=== PATIENT | male | born 1950 | race Caucasian/White ===

== ENCOUNTER 2017-07-22 10:54 | Observation (INO) | payer OTHER ==
--- NOTE | 2017-07-22 11:59 | EDPHY ---
H & P Time Seen by Provider: 07/22/17 11:59 HPI/ROS: Chief complaint. Left flank pain HPI. 59 ammonia old male presents with left flank and back pain for 4 days. No injury. Hurts to move. No urinary symptoms. No fever. He has had constipation for 4 days. Slightly distended abdomen with some periumbilical discomfort. No previous abdominal surgery. Has had history of constipation. Denies chest discomfort or trouble breathing. ROS Constitutional. no fever/chills, no weakness Eyes. no problems with vision ENT. no sore throat, no nasal drainage Cardiovascular. no chest pain Respiratory. no shortness of breath, no cough Abdominal. Left flank pain . no problems urinating MS. no calf pain/swelling, no neck/back pain, no joint pain Skin. no rash Lymph. no swollen glands Neuro. no headache, no dizziness, no difficulty walking or with speech Past Medical/Surgical History: Past medical history significant for hypertension Social History: , nonsmoker, no alcohol Smoking Status: Never smoked Physical Exam: General Appearance: Alert well-developed male moderate distress vital signs are stable Eyes: Pupils equal and round no pallor or injection. ENT, Mouth: Mucous membranes are moist. Respiratory: There are no retractions, lungs are clear to auscultation. Cardiovascular: Regular rate and rhythm. Gastrointestinal: Abdomen is soft and nontender, no masses, bowel sounds normal. Patient shows me pain to the left flank area but is not worse with palpation Neurological: Awake and alert, sensory and motor exams grossly normal. Skin: Warm and dry, no rashes. Musculoskeletal: Neck is supple nontender. Extremities symmetrical, full range of motion. Psychiatric: Patient is oriented X 3, there is no agitation. Constitutional: Initial Vital Signs Temperature (C) 36.5 C 07/22/17 11:09 Heart Rate 58 L 07/22/17 11:09 Respiratory Rate 16 07/22/17 11:09 Blood Pressure 170/95 H 07/22/17 11:09 O2 Sat (%) 98 07/22/17 11:09 O2 Delivery Mode Room Air Allergies/Adverse Reactions: No Known Allergies Allergy (Unverified 07/22/17 11:07) Home Medications: Medication Instructions Recorded C/E/Zn/Cu/OM3/DHA/EPA/LUT/ZEAX 1 each PO DAILY 07/22/17 [Preservision Areds 2 Softgel] Dextromethorphan HBr/Quinidine 1 each PO DAILY 07/22/17 [Nuedexta 20-10 mg Capsule] Herbals/Supplements -Info Only 1 ea PO DAILY 07/22/17 Tamsulosin HCl [Flomax 0.4 MG (*)] 0.4 mg PO HS 07/22/17 Valsartan/Hydrochlorothiazide 1 each PO DAILY 07/22/17 [Valsartan-Hctz 160-12.5 mg Tab] buPROPion SR [Wellbutrin 150mg SR 150 mg PO BID 07/22/17 (*)] Medical Decision Making - Diagnostics Imaging Results: Imaging Impressions Abdomen CT 07/22/17 12:11 Impression: 1. 9-mm left ureterovesical junction stone with moderate obstructive uropathy with perinephric and periureteric stranding, suggesting forniceal rupture. Urothelial enhancement could be related to inflammation or infection. 2. Constipation. 3. Diverticulosis. 4. Mild esophageal thickening, possibly related to inflammation or underdistention. 5. Additional findings as above. Findings discussed with Dr. Ziggy Rosenbaum on July 22, [address] abdomen and pelvis shows 9 mm stone at the left UVJ. Lots of proximal stranding. Procedures: IV normal saline. Morphine for pain. Zofran for nausea ED Course/Re-evaluation: Re-evaluation 1:30 p.m.--patient continues to have left-sided pain Patient and I discussed treatment plan including recommendation for admission. He expresses understanding and agreement I consulted and discussed case Dr. matos, hospitalist, who agrees to the admission I consulted and discussed the case with Dr. Baird, urologist, who will see the patient in consultation Differential Diagnosis: I considered musculoskeletal etiology, diverticulitis, abdominal aortic aneurysm , kidney stone. Patient appears to have compromised renal function though since he is visiting we do not have baseline renal function - Data Points Laboratory Results: Laboratory Results 07/22/17 12:13 07/22/17 12:13 07/22/17 07/22/17 07/22/17 12:13 12:13 11:55 WBC 9.31 10^3/uL 10^3/uL (3.80-9.50) RBC 4.54 10^6/uL 10^6/uL (4.40-6.38) Hgb 14.3 g/dL g/dL (13.7-17.5) Hct 41.2 % % (40.0-51.0) MCV 90.7 fL fL (81.5-99.8) MCH 31.5 pg pg (27.9-34.1) MCHC 34.7 g/dL g/dL (32.4-36.7) RDW 12.7 % % (11.5-15.2) Plt Count 286 10^3/uL 10^3/uL (150-400) MPV 9.7 fL fL (8.7-11.7) Neut % (Auto) 78.0 % H % (39.3-74.2) Lymph % (Auto) 11.3 % L % (15.0-45.0) [place] % (Auto) 8.1 % % (4.5-13.0) Eos % (Auto) 1.7 % % (0.6-7.6) Baso % (Auto) 0.5 % % (0.3-1.7) Nucleat RBC Rel Count 0.0 % % (0.0-0.2) Absolute Neuts (auto) 7.26 10^3/uL H 10^3/uL (1.70-6.50) Absolute Lymphs (auto) 1.05 10^3/uL 10^3/uL (1.00-3.00) Absolute Monos (auto) 0.75 10^3/uL 10^3/uL (0.30-0.80) Absolute Eos (auto) 0.16 10^3/uL 10^3/uL (0.03-0.40) Absolute Basos (auto) 0.05 10^3/uL 10^3/uL (0.02-0.10) Absolute Nucleated RBC 0.00 10^3/uL 10^3/uL (0-0.01) Immature Gran % 0.4 % % (0.0-1.1) Immature Gran # 0.04 10^3/uL 10^3/uL (0.00-0.10) Sodium 138 mEq/L mEq/L (134-144) Potassium 4.1 mEq/L mEq/L (3.5-5.2) Chloride 97 mEq/L mEq/L (97-110) Carbon Dioxide 30 mEq/l mEq/l (22-31) Anion Gap 11 mEq/L mEq/L (8-16) BUN 18 mg/dL mg/dL (7-23) Creatinine 1.4 mg/dL H mg/dL (0.7-1.3) Estimated GFR 51 Glucose 99 mg/dL mg/dL (70-100) Calcium 10.3 mg/dL mg/dL (8.5-10.4) Urine Color PALE YELLOW Urine Appearance CLEAR Urine pH 6.0 (5.0-7.5) Ur Specific [place] 1.003 (1.002-1.030) Urine Protein NEGATIVE (NEGATIVE) Urine Ketones NEGATIVE (NEGATIVE) Urine Blood NEGATIVE (NEGATIVE) Urine Nitrate NEGATIVE (NEGATIVE) Urine Bilirubin NEGATIVE (NEGATIVE) Urine Urobilinogen NEGATIVE EU EU (0.2-1.0) Ur Leukocyte Esterase NEGATIVE (NEGATIVE) Urine RBC 1-3 /hpf /hpf (0-3) Urine WBC 1-3 /hpf /hpf (0-3) Ur Epithelial Cells NONE SEEN /lpf /lpf (NONE-1+) Urine Glucose NEGATIVE (NEGATIVE) Medications Given: Discontinued Medications Sodium Chloride (Ns) 1,000 mls @ 0 mls/hr IV EDNOW ONE; Wide Open PRN Reason: Protocol Stop: 07/22/17 12:12 Last Admin: 07/22/17 12:27 Dose: 1,000 mls Ketorolac Tromethamine (Toradol) 30 mg IVP EDNOW ONE Stop: 07/22/17 12:13 Last Admin: 07/22/17 12:27 Dose: 30 mg Morphine Sulfate (Morphine) 6 mg IVP EDNOW ONE Stop: 07/22/17 12:12 Last Admin: 07/22/17 12:26 Dose: 6 mg Ondansetron HCl (Zofran) 4 mg IVP EDNOW ONE Stop: 07/22/17 12:12 Last Admin: 07/22/17 12:27 Dose: 4 mg Departure - Departure Disposition: [facility] Clinical Impression: Kidney stone on left side Condition: Fair Instructions: Kidney Stones (ED) Referrals: NONE *PRIMARY CARE P,. [Unknown] - As per Instructions
[2017-07-22] MEDS ORDERED: ONDANSETRON 4 MG/2 ML VIAL IVP ONE (12:11)
[2017-07-22] MEDS ORDERED: NS 1,000 ML IV ONE (12:11)
[2017-07-22] MEDS ORDERED: KETOROLAC 30 MG/1 ML SDV IVP ONE (12:12)
[2017-07-22 12:22] LABS: COLOR PALE YELLOW; LEUKOCYTE ESTERASE,URINE NEGATIVE (NEGATIVE); NITRITE,URINE NEGATIVE (NEGATIVE)
[2017-07-22 12:25] LABS: % IMMATURE GRANULYOCYTES 0.4 % (0.0-1.1); ABSOLUTE IMMATURE GRANULOCYTES 0.04 10^3/uL (0.00-0.10); ADD DIFF? NO; ADD MORPH? NO; ADD SCAN? NO; ATYPICAL LYMPHOCYTE FLAG 0 (0-99); FRAGMENT RBC FLAG 0 (0-99); HEMATOCRIT 41.2 % (40.0-51.0); HEMOGLOBIN 14.3 g/dL (13.7-17.5); LEFT SHIFT FLG 0 (0-99); LIPEMIA HEMOLYSIS FLAG 90 (0-99); MEAN CELL HEMOGLOBIN 31.5 pg (27.9-34.1); MEAN CELL HEMOGLOBIN CONCENTR. 34.7 g/dL (32.4-36.7); MEAN CELL VOLUME 90.7 fL (81.5-99.8); MEAN PLATELET VOLUME 9.7 fL (8.7-11.7); PLATELET CLUMPS FLAG 0 (0-99); PLATELET COUNT 286 10^3/uL (150-400); RED BLOOD CELL COUNT 4.54 10^6/uL (4.40-6.38); RED CELL DISTRIBUTION WIDTH 12.7 % (11.5-15.2)
[2017-07-22 12:44] LABS: ANION GAP 11 mEq/L (8-16); CALCIUM 10.3 mg/dL (8.5-10.4); CARBON DIOXIDE 30 mEq/l (22-31); CHLORIDE 97 mEq/L (97-110); CREATININE 1.4 mg/dL (0.7-1.3); GLOMERULAR FILTRATION RATE 51; GLUCOSE 99 mg/dL (70-100); POTASSIUM 4.1 mEq/L (3.5-5.2); SODIUM 138 mEq/L (134-144)
[2017-07-22] MEDS ORDERED: IOPAMIDOL (ISOVUE-300) 100 ML BTL ONE (12:48)
[2017-07-22] MEDS ORDERED: METOCLOPRAMIDE 10 MG TAB PO PRN (14:26)
[2017-07-22] MEDS ORDERED: METOCLOPRAMIDE 10 MG/2 ML VIAL IVP PRN (14:26)
[2017-07-22] MEDS ORDERED: MAGNESIUM HYDROXIDE 30 ML UDCUP PO PRN (15:12)
[2017-07-22] MEDS ORDERED: LACTULOSE 20 GM/30 ML UDCUP PO PRN (15:12)
[2017-07-22] MEDS ORDERED: BISACODYL 10 MG SUPP PR PRN (15:12)
[2017-07-22] MEDS ORDERED: POLYETHYLENE GLYCOL 3350 17 GM PKT PO PRN (15:12)
--- NOTE | 2017-07-22 15:17 | PDGENHP ---
History and Physical - Chief Complaint Acute flank pain - History of Present Illness Primary care provider: In [facility] HPI: 66-year-old male presenting with acute pain located in the left flank, characterized as severe and sharp, exacerbated by movement, associated with constipation. Onset of symptoms was 4 days prior and duration was intermittent and then constant recently, leading to his presentation. He reports increased fluid intake since traveling to [place] 3 and half days ago, and also reports polyuria thereafter. He denies any dysuria, denies any hematuria, denies any vomiting. He has never experienced this constellation of symptoms before. He took his home medications on the morning of presentation. History Information - Allergies/Home Medication List Allergies/Adverse Reactions: No Known Allergies Allergy (Unverified 07/22/17 11:07) Home Medications: C/E/Zn/Cu/OM3/DHA/EPA/LUT/ZEAX [Preservision Areds 2 Softgel] 1 each PO DAILY [Last Taken 07/22/17] Dextromethorphan HBr/Quinidine [Nuedexta 20-10 mg Capsule] 1 each PO DAILY 07/22 [Last Taken 07/22/17] Herbals/Supplements -Info Only 1 ea PO DAILY 07/22/17 [Last Taken Unknown] Tamsulosin HCl [Flomax 0.4 MG (*)] 0.4 mg PO HS 07/22/17 [Last Taken 07/21/17] Valsartan/Hydrochlorothiazide [Valsartan-Hctz 160-12.5 mg Tab] 1 each PO DAILY 07/22/17 [Last Taken 07/22/17] buPROPion SR [Wellbutrin 150mg SR (*)] 150 mg PO BID 07/22/17 [Last Taken ] I have personally reviewed and updated: family history, medical history, social history, surgical history - Past Medical History hypertension Additional medical history: BPH - Surgical History Reports: no pertinent surgical hx - Family History Additional family history: Father had nephrolithiasis - Social History Smoking Status: Never smoked Alcohol Use: Other (Nightly scotch beverages, has never experienced acute alcohol withdrawal, has not increased his alcohol intake during strep) Drug Use: None Additional social history: Patient is a visiting a friend locally, traveling to [place] tomorrow Review of Systems Review of Systems: ROS: 10pt was reviewed & negative except for what was stated in HPI & below Gastrointestinal: Reports: abdominal pain, constipation Physical Exam Physical Exam: Temp Pulse Resp BP Pulse Ox 36.9 C 85 18 124/85 H 94 07/22/17 15:05 07/22/17 15:05 07/22/17 15:05 07/22/17 15:05 07/22/17 15:05 Constitutional: no apparent distress, appears nourished, uncomfortable, No chronically ill appearing Eyes: PERRL, anicteric sclera, EOMI Ears, Nose, Mouth, Throat: moist mucous membranes, hearing normal, ears appear normal, no oral mucosal ulcers Cardiovascular: regular rate and rhythym, no murmur, rub, or gallop, No edema Respiratory: no respiratory distress, no rales or rhonchi, clear to auscultation , other (Pain on deep inspiration) Gastrointestinal: normoactive bowel sounds, tenderness (Left flank), distension (Moderate), No guarding Skin: warm, normal color, no rashes or abrasions, no fluctuance, no induration, No mottled Neurologic: AAOx3, sensation intact bilaterally, No facial droop Psychiatric: interacting appropriately, not anxious, not encephalopathic, thought process linear Lab Data & Imaging Review 07/22/17 12:13 07/22/17 12:13 WBC 9.31 10^3/uL (3.80-9.50) 07/22/17 12:13 RBC 4.54 10^6/uL (4.40-6.38) 07/22/17 12:13 Hgb 14.3 g/dL (13.7-17.5) 07/22/17 12:13 Hct 41.2 % (40.0-51.0) 07/22/17 12:13 MCV 90.7 fL (81.5-99.8) 07/22/17 12:13 MCH 31.5 pg (27.9-34.1) 07/22/17 12:13 MCHC 34.7 g/dL (32.4-36.7) 07/22/17 12:13 RDW 12.7 % (11.5-15.2) 07/22/17 12:13 Plt Count 286 10^3/uL (150-400) 07/22/17 12:13 MPV 9.7 fL (8.7-11.7) 07/22/17 12:13 Neut % (Auto) 78.0 % (39.3-74.2) H 07/22/17 12:13 Lymph % (Auto) 11.3 % (15.0-45.0) L 07/22/17 12:13 [place] % (Auto) 8.1 % (4.5-13.0) 07/22/17 12:13 Eos % (Auto) 1.7 % (0.6-7.6) 07/22/17 12:13 Baso % (Auto) 0.5 % (0.3-1.7) 07/22/17 12:13 Nucleat RBC Rel Count 0.0 % (0.0-0.2) 07/22/17 12:13 Absolute Neuts (auto) 7.26 10^3/uL (1.70-6.50) H 07/22/17 12:13 Absolute Lymphs (auto) 1.05 10^3/uL (1.00-3.00) 07/22/17 12:13 Absolute Monos (auto) 0.75 10^3/uL (0.30-0.80) 07/22/17 12:13 Absolute Eos (auto) 0.16 10^3/uL (0.03-0.40) 07/22/17 12:13 Absolute Basos (auto) 0.05 10^3/uL (0.02-0.10) 07/22/17 12:13 Absolute Nucleated RBC 0.00 10^3/uL (0-0.01) 07/22/17 12:13 Immature Gran % 0.4 % (0.0-1.1) 07/22/17 12:13 Immature Gran # 0.04 10^3/uL (0.00-0.10) 07/22/17 12:13 Sodium 138 mEq/L (134-144) 07/22/17 12:13 Potassium 4.1 mEq/L (3.5-5.2) 07/22/17 12:13 Chloride 97 mEq/L (97-110) 07/22/17 12:13 Carbon Dioxide 30 mEq/l (22-31) 07/22/17 12:13 Anion Gap 11 mEq/L (8-16) 07/22/17 12:13 BUN 18 mg/dL (7-23) 07/22/17 12:13 Creatinine 1.4 mg/dL (0.7-1.3) H 07/22/17 12:13 Estimated GFR 51 07/22/17 12:13 Glucose 99 mg/dL (70-100) 07/22/17 12:13 Calcium 10.3 mg/dL (8.5-10.4) 07/22/17 12:13 Urine Color PALE YELLOW 07/22/17 11:55 Urine Appearance CLEAR 07/22/17 11:55 Urine pH 6.0 (5.0-7.5) 07/22/17 11:55 Ur Specific [place] 1.003 (1.002-1.030) 07/22/17 11:55 Urine Protein NEGATIVE (NEGATIVE) 07/22/17 11:55 Urine Ketones NEGATIVE (NEGATIVE) 07/22/17 11:55 Urine Blood NEGATIVE (NEGATIVE) 07/22/17 11:55 Urine Nitrate NEGATIVE (NEGATIVE) 07/22/17 11:55 Urine Bilirubin NEGATIVE (NEGATIVE) 07/22/17 11:55 Urine Urobilinogen NEGATIVE EU (0.2-1.0) 07/22/17 11:55 Ur Leukocyte Esterase NEGATIVE (NEGATIVE) 07/22/17 11:55 Urine RBC 1-3 /hpf (0-3) 07/22/17 11:55 Urine WBC 1-3 /hpf (0-3) 07/22/17 11:55 Ur Epithelial Cells NONE SEEN /lpf (NONE-1+) 07/22/17 11:55 Urine Glucose NEGATIVE (NEGATIVE) 07/22/17 11:55 Visualized and Interpreted imaging results: Yes Interpretation: CT of the abdomen demonstrates a 9 mm stone at the UVJ with perinephric stranding, consistent with for cecal rupture, constipation, diverticulosis Assessment & Plan Assessment: 66-year-old male presents with acute obstructive uropathy in the setting of new diagnosis nephrolithiasis Plan: 1. Obstructive uropathy. Acute, secondary to 9 mm stone at the UVJ causing fullness feel rupture and acute kidney injury -discussed with Dr. Ziggy Rosenbaum, he has reported to me that he has consulted with Dr. Tasneem Baird, who will evaluate the patient to consider cystoscopy -keep NPO in case cystoscopy to be performed today, will contact Dr. Baird for scheduling -continue IV fluids -continue IV pain medications -continue to monitor urine output 2. Acute kidney injury. New problem this provider, further workup indicated. Secondary to above, creatinine 1.4, no history of chronic kidney disease, patient took his ARB and diuretic this morning -will hold ARB diuretic combo pill -will give IV fluids -will monitor urine output and repeat creatinine level in a.m. 3. Constipation. Placed on bowel regimen, use Reglan for nausea if needed 4. Nephrolithiasis. Acute, 1st presentation, will strain urine and continue high rate IV fluids with IV pain medication for control 5. Hypertension. Hold home medication 6. BPH. Chronic, continue Flomax Code. Full Prophylaxis. Moderate risk patient, SCDs, hold pharm given possible procedure Diet. NPO with IV fluids Disposition. Anticipated discharge is 07/23/2017, pending cystoscopy as outlined above.
[2017-07-22] MEDS: HYDROmorphONE/DILAUDID 1 MG/ML INJ IVP PRN (16:21)
--- NOTE | 2017-07-22 19:10 | SOAPPROG ---
SOAP Progress Note Assessment/Plan: Assessment: Symptomatic distal left ureteral calculus - improved, stable at this time. Plan: 1. Continue medical management this evening. 2. Proceed with ureteroscopy tomorrow if he does not spontaneously pass the calculus in the meantime. Please see dictated consult note (consult dict. # [id number]). Objective: Vital Signs Temp Pulse Resp BP Pulse Ox 37.1 C 62 18 125/85 H 90 L 07/22/17 16:30 07/22/17 16:30 07/22/17 16:30 07/22/17 16:30 07/22/17 16:30 07/21/17 07/22/17 07/23/17 05:59 05:59 05:59 Intake Total 29513 Balance 96091 ICD10 Worksheet Patient Problems: Problems Problem Status Onset Kidney stone on left side Acute
[2017-07-22] MEDS: buPROPion SR 150 MG TAB PO SCH (20:30)
[2017-07-22] MEDS: SENNOSIDES/DOCUSATE SODIUM TAB PO SCH (20:30)
[2017-07-22] MEDS: TAMSULOSIN HCL 0.4 MG CAP PO SCH (20:30)
[2017-07-22] MEDS: NS 1,000 ML IV SCH (21:59)
[2017-07-22] MEDS: HYDROmorphONE/DILAUDID 2 MG TAB PO PRN (21:59)
[2017-07-23] MEDS: HYDROmorphONE/DILAUDID 2 MG TAB PO PRN ×4 (03:06→20:30)
[2017-07-23 04:59] LABS: % IMMATURE GRANULYOCYTES 0.5 % (0.0-1.1); ABSOLUTE IMMATURE GRANULOCYTES 0.03 10^3/uL (0.00-0.10); ADD DIFF? NO; ADD MORPH? NO; ADD SCAN? NO; ATYPICAL LYMPHOCYTE FLAG 0 (0-99); FRAGMENT RBC FLAG 0 (0-99); HEMATOCRIT 32.7 % (40.0-51.0); HEMOGLOBIN 11.3 g/dL (13.7-17.5); LEFT SHIFT FLG 0 (0-99); LIPEMIA HEMOLYSIS FLAG 90 (0-99); MEAN CELL HEMOGLOBIN 31.9 pg (27.9-34.1); MEAN CELL HEMOGLOBIN CONCENTR. 34.6 g/dL (32.4-36.7); MEAN CELL VOLUME 92.4 fL (81.5-99.8); PLATELET CLUMPS FLAG 0 (0-99); PLATELET COUNT 215 10^3/uL (150-400); RED BLOOD CELL COUNT 3.54 10^6/uL (4.40-6.38); RED CELL DISTRIBUTION WIDTH 12.8 % (11.5-15.2)
--- NOTE | 2017-07-23 05:21 | GCON ---
[f rep st] CONSULTATION DATE OF CONSULTATION: 07/22/2017 REFERRING PHYSICIAN: Hospitalist Service REASON FOR CONSULTATION: Symptomatic left ureteral calculus. HISTORY: This is a 66-year-old gentleman, who started experiencing left-sided flank pain about 1 week ago, which was mild at that time. The pain became much more severe this past weekend, then again abated. He then developed another recurrence of severe renal colic this morning, for which he came to the emergency room earlier this afternoon. Imaging was performed which had confirmed the presence of a left-sided ureteral calculus. The patient was admitted for further management. Since admission, he has improved. He has also had constipation issues, with no significant bowel movement since last Saturday. Otherwise, he denies dysuria, gross hematuria, nausea, vomiting, changes in his voiding pattern, nor a prior history of nephrolithiasis. He has a longstanding history of obstructive urinary symptoms from BPH that include increased urinary frequency, decreased stream, and nocturia, for which he has been on tamsulosin, effectively for some time. He has not seen a urologist in several years. PAST MEDICAL HISTORY: Hypertension, depression, BPH. PAST SURGICAL HISTORY: Includes hydrocelectomy and Mohs surgery for facial skin cancer. ADMISSION MEDICATIONS: Include Nuedexta 1 tablet daily, tamsulosin 0.4 mg daily , valsartan/HCTZ 160/12.5 mg daily, bupropion 150 mg twice daily. ALLERGIES: None known. FAMILY HISTORY: Father might have had kidney stones. SOCIAL HISTORY: The patient and his , Jose Luis, live in the [place], [place] area. He has been here since last Saturday, visiting a friend in [place], and is scheduled to go to the [facility] in [place] for a meeting starting tomorrow. He denies use of tobacco products and consumes scotch nightly. REVIEW OF SYSTEMS: Unremarkable, other than mentioned above in the HPI and past medical history. PHYSICAL EXAM: GENERAL: Well-developed, well-nourished, white male, lying supine on bed, in no acute distress presently. VITAL SIGNS: Blood pressure 125 /85, pulse 62, respirations 18, oxygen saturation 90% on room air, temperature 37.1 Celsius. Height 180 cm, weight 79 kg, BMI 24. HEENT: Normocephalic, atraumatic. NECK: Supple. HEART: Regular rate. CHEST: Unlabored respiratory pattern. ABDOMEN: Soft without palpable masses. No obvious organomegaly. BACK: No CVA tenderness currently. GENITALIA: Circumcised phallus with a normal urethral meatus in proper position and of adequate size. Scrotal structures are unremarkable. EXTREMITIES: Warm without cyanosis, clubbing, nor edema. VASCULAR: Normal femoral, dorsalis pedis, and posterior tibial pulses bilaterally. NEUROLOGIC: He is alert and oriented. He answers all questions appropriately with normal mood and affect. RADIOGRAPHIC STUDIES: Noncontrast abdominopelvic CT scan today: Upon my review , notable for moderate left hydronephrosis and hydroureter down to a 9 x 6 x 8 mm long ureterovesical junction calculus. No other nephroureterolithiasis is appreciated. No obvious abnormal renal masses are noted. LABORATORY DATA: Chemistry panel today notable for creatinine of 1.4. CBC normal. Urinalysis normal. IMPRESSION: Sizeable symptomatic distal left ureteral calculus. Management options were reviewed with the patient and all questions were answered regarding these options. He is currently stable. PLAN: 1. Continue medical management with IV fluids, and Flomax this evening, along with parental analgesics and antiemetics p.r.n. 2. If he does not spontaneously pass the calculus tonight, we will proceed with intraoperative ureteroscopy and calculus management with ureteral stent placement tomorrow early afternoon. Thank you for this consultation. /[id number]/MODL MTDD
[2017-07-23 05:25] LABS: ANION GAP 9 mEq/L (8-16); CALCIUM 8.4 mg/dL (8.5-10.4); CARBON DIOXIDE 24 mEq/l (22-31); CHLORIDE 105 mEq/L (97-110); CREATININE 1.3 mg/dL (0.7-1.3); GLOMERULAR FILTRATION RATE 55; GLUCOSE 89 mg/dL (70-100); POTASSIUM 4.3 mEq/L (3.5-5.2); SODIUM 138 mEq/L (134-144)
[2017-07-23] MEDS: ACETAMINOPHEN 325 MG TAB PO PRN ×2 (08:00→22:24)
[2017-07-23] MEDS: NS 1,000 ML IV SCH ×2 (08:02→22:30)
--- NOTE | 2017-07-23 08:30 | HOSPPROG ---
Hospitalist Progress Note Assessment/Plan: 66-year-old male admitted with a left 9 mm ureteral stone. He is currently status post lithotripsy destruction of the stone and stent placement. Post removal is significantly hypertensive. He has a history of hypertension patient is new to me today -left ureteral calculus status post lithotripsy destruction of the stone and removal and improved -hypertension pre and postoperative. Plan: Hydralazine and restart of his outpatient p. O. antihypertensive medications. Pain relief as needed. Subjective: Reports pain at the low left pelvic brim. Objective: Vital Signs Temp Pulse Resp BP Pulse Ox 37.1 C 62 16 150/89 H 92 07/23/17 08:11 07/23/17 08:11 07/23/17 08:11 07/23/17 08:11 07/23/17 08:11 Laboratory Results 07/23/17 04:36 07/23/17 04:36 07/22/17 07/23/17 07/24/17 05:59 05:59 05:59 Intake Total 25343 Output Total 400 275 Balance 71450 -275 Selected Entries 07/22/17 07/22/17 07/23/17 16:30 20:00 03:12 Blood Pressure 125/85 H 101/62 135/93 H 07/23/17 08:11 Blood Pressure 150/89 H Laboratory Tests 07/22/17 07/22/17 07/23/17 12:13 12:13 04:36 RBC 3.54 L Hgb 14.3 11.3 L Creatinine 1.4 H 07/23/17 04:36 RBC Hgb Creatinine 1.3 Patient afebrile, creatinine slightly improved with fluids, post contrasted CT scan. - Time Spent With Patient Time Spent with Patient: greater than 35 minutes Time Spent with Patient: Greater than 35 minutes spent on this patients care, greater than 50% of time spent counseling, educating, and coordinating care regarding the above mentioned plan. - Pending Discharge Pending Discharge Within 24 Hours: Yes Pending Discharge Date: 07/24/17 Pending Discharge Time: 11:00 - Physical Exam Constitutional: no apparent distress Eyes: PERRL Ears, Nose, Mouth, Throat: moist mucous membranes, hearing normal Cardiovascular: regular rate and rhythym, no murmur, rub, or gallop Respiratory: no respiratory distress, no rales or rhonchi, clear to auscultation Gastrointestinal: normoactive bowel sounds, soft, non-tender abdomen, no palpable masses, other (Low left CVA tenderness) Genitourinary: no bladder fullness Skin: warm Neurologic: AAOx3, CN II-XII Intact Psychiatric: interacting appropriately ICD10 Worksheet Patient Problems: Problems Problem Status Onset Kidney stone on left side Acute
[2017-07-23] MEDS ORDERED: Herbals/Supplements -Info Only PO SCH (09:00)
[2017-07-23] MEDS: SENNOSIDES/DOCUSATE SODIUM TAB PO SCH ×2 (09:52→20:28)
[2017-07-23] MEDS: buPROPion SR 150 MG TAB PO SCH ×2 (09:53→20:28)
[2017-07-23] MEDS: Dextromethorphan Hbr/Quinidine [Nuedexta 20-10 Mg Capsule] PO SCH (09:55)
[2017-07-23] MEDS: PRESERVISION AREDS2 FORMULA EYE VIT 1 EACH PO SCH (09:55)
[2017-07-23] MEDS: HYDROmorphONE/DILAUDID 1 MG/ML INJ IVP PRN (10:53)
[2017-07-23] MEDS ORDERED: IOPAMIDOL (ISOVUE-M 300) 15 ML VIAL ONE (12:11)
[2017-07-23] MEDS ORDERED: LIDOCAINE 2% JELLY 20 ML (UROJECT) ONE (12:11)
[2017-07-23] MEDS ORDERED: levOFLOXACIN 500 MG/DEXTROSE 100 ML IV ONE (12:15)
--- NOTE | 2017-07-23 12:30 | PDANEPAE ---
ANE History of Present Illness Patient presents for ureteroscopy, stone extraction. ANE Past Medical History - Cardiovascular History Hx Hypertension: Yes - Pulmonary History Hx Oxygen in Use at Home: No Hx Sleep Apnea: Yes Sleep Apnea Screening Result - Last Documented: Positive - Endocrine History Hx Diabetes: No ANE Review of Systems Review of Systems: ANE Patient History - Allergies Allergies/Adverse Reactions: No Known Allergies Allergy (Unverified 07/22/17 11:07) - Home Medications Home medications: home medication list seen and reviewed Home Medications: C/E/Zn/Cu/OM3/DHA/EPA/LUT/ZEAX [Preservision Areds 2 Softgel] 1 each PO DAILY [Last Taken 07/22/17] Dextromethorphan HBr/Quinidine [Nuedexta 20-10 mg Capsule] 1 each PO DAILY 07/22 [Last Taken 07/22/17] Herbals/Supplements -Info Only 1 ea PO DAILY 07/22/17 [Last Taken Unknown] Tamsulosin HCl [Flomax 0.4 MG (*)] 0.4 mg PO HS 07/22/17 [Last Taken 07/21/17] Valsartan/Hydrochlorothiazide [Valsartan-Hctz 160-12.5 mg Tab] 1 each PO DAILY 07/22/17 [Last Taken 07/22/17] buPROPion SR [Wellbutrin 150mg SR (*)] 150 mg PO BID 07/22/17 [Last Taken ] - NPO status NPO Status: no food or drink >8 hours NPO Since - Liquids (Date): 07/22/17 NPO Since - Liquids (Time): 00:00 NPO Since - Solids (Date): 07/22/17 NPO Since - Solids (Time): 00:00 - Anes Hx Anes Hx: no prior problems - Smoking Hx Smoking Status: Never smoked - Alcohol Use Alcohol Use: Other (Nightly scotch beverages, has never experienced acute alcohol withdrawal, has not increased his alcohol intake during strep) ANE Labs/Vital Signs - Labs Result Diagrams: 07/23/17 04:36 07/23/17 04:36 - Vital Signs Blood Pressure: 150/89 Heart Rate: 62 Respiratory Rate: 16 O2 Sat (%): 92 Height: 180.34 cm Weight: 79.379 kg ANE Physical Exam - Airway Neck exam: FROM Mallampati Score: Class 2 Mouth exam: normal dental/mouth exam - Pulmonary Pulmonary: no respiratory distress - Cardiovascular Cardiovascular: pulses symmetric bilaterally - ASA Status ASA Status: II ANE Anesthesia Plan Anesthesia Plan: general endotracheal anesthesia (RBA discussed)
[2017-07-23] MEDS ORDERED: fentaNYL 100 MCG/2 ML INJ ONE (12:33)
[2017-07-23] MEDS ORDERED: PROPOFOL 200 MG/20 ML VIAL ONE (12:33)
[2017-07-23] MEDS ORDERED: LIDOCAINE 2% 5 ML SDV ONE (12:36)
[2017-07-23] MEDS ORDERED: LR 1,000 ML IV ONE (12:41)
[2017-07-23] MEDS ORDERED: DEXAMETHASONE 4 MG/ML VIAL ONE (13:27)
[2017-07-23] MEDS ORDERED: ONDANSETRON 4 MG/2 ML VIAL ONE (13:28)
[2017-07-23] MEDS ORDERED: ONDANSETRON 4 MG/2 ML VIAL IVP PRN (13:56)
[2017-07-23] MEDS ORDERED: LABETALOL HCL 50 MG/10 ML SYR IVP PRN (13:56)
[2017-07-23] MEDS ORDERED: NALOXONE HCL 0.4 MG/ML INJ IVP PRN (13:56)
[2017-07-23] MEDS ORDERED: fentaNYL 100 MCG/2 ML INJ IVP PRN (13:56)
[2017-07-23] MEDS ORDERED: OXYCODONE/APAP 5/325 TAB PO PRN (13:56)
[2017-07-23] MEDS ORDERED: LR 500 ML IV PRN (13:56)
[2017-07-23] MEDS ORDERED: HYDROCODONE/APAP 5/325 TAB PO PRN (13:56)
--- NOTE | 2017-07-23 14:19 | POSTOPPROG ---
Post Op Note Date of Operation: 07/23/17 Surgeon: Debi Cote (# [id number]) Anesthesia: LMA Pre-op Diagnosis: Large distal left ureteral calculus Post-op Diagnosis: Large distal left ureteral calculus Procedure: Left ureteroscopy w/ holmium laser lithotripsy, stent placement Findings: See op note Inf/Abcess present in the surg proc area at time of surgery?: No EBL: Minimal Complications: None Drains: Other (4.7 Fr. x 24 cm left ureteral stent) Specimen(s): Left ureteral stent calculus fragments
--- NOTE | 2017-07-23 14:23 | POSTANESTH ---
Post Anesthetic Evaluation Cardiovascular Status: Normal, Stable Respiratory Status: Normal, Stable Level of Consciousness/Mental Status: Mildly Sleepy, Arousable Pain Control: Adequate, Prn Tx Ordered Nausea/Vomiting Control: Adequate, Prn Tx Ordered Complications Possibly Related to Anesthesia: None Noted
[2017-07-23] MEDS: PHENAZOPYRIDINE HCL 200 MG TAB PO SCH ×5 (16:36→20:28)
[2017-07-23] MEDS ORDERED: hydrALAZINE 20 MG/ML VIAL IVP ONE (16:40)
--- NOTE | 2017-07-23 17:44 | ASMTCMCOM ---
CM Note CM Note Notes: Patient taken to surgery today for kidney stone. Anticipate discharge Independent tomorrow, . 07/24/2017. Case management will follow. Date Signed: 07/23/2017 05:43 PM Electronically Signed By:EDUARDO Da Silva
[2017-07-23] MEDS: TAMSULOSIN HCL 0.4 MG CAP PO SCH (20:28)
[2017-07-23 22:34] VITALS: RESP 16
[2017-07-23] MEDS: hydrALAZINE 20 MG/ML VIAL IVP PRN (22:39)
[2017-07-24] MEDS: NS 1,000 ML IV SCH ×2 (01:36→06:47)
--- NOTE | 2017-07-24 01:59 | GOP ---
[f rep st] OPERATIVE REPORT DATE OF OPERATION: 07/23/2017 SURGEON: Debi Cote MD ANESTHESIA: Laryngeal mask. PREOPERATIVE DIAGNOSIS: Symptomatic large, distal, left, ureteral calculus. POSTOPERATIVE DIAGNOSIS: Symptomatic large, distal, left, ureteral calculus. PROCEDURE PERFORMED: 1. Cystourethroscopy, left retrograde pyelography. 2. Left ureteroscopy with holmium laser calculus lithotripsy, and basket extraction. 3. Left ureteral stent placement (4.7-South African by 24 cm). FINDINGS: Large impacted calculus at the ureterovesical junction on the left side. SPECIMENS: Left ureteral calculus fragments. ESTIMATED BLOOD LOSS: Minimal. INDICATIONS: This gentleman was admitted yesterday with symptoms related to a large, distal, left, u reteral calculus, which he has been unable to pass spontaneously. It was recommended that he undergo intraoperative management at this time. The indications for the procedures as well as potential ris ks and complications, were discussed with the patient preoperatively. He appeared to understand, his questions were answered, and he wished to proceed. Written informed surgical consent was thereafter obtained. DESCRIPTION OF PROCEDURE: The patient was brought to the operating room and administered laryngeal m ask anesthesia. He was carefully placed in the dorsal lithotomy position on the cystoscopic table. The genital area was sterilely prepped with Betadine scrub and paint, then draped in the usual steril e fashion. Cystoscopy was then performed with the 30-degree lens through a 22-South African sheath. Anteri or urethra revealed no abnormalities. Posterior urethra revealed dxoj-yg-tqoulgjo lateral lobe BPH. Examination of bladder revealed a moderately trabeculated pattern. There was a calculus that was im pacted at the left ureteral orifice which could be barely seen through the cystoscope. The remainder of the bladder was otherwise unremarkable. There was significant edema surrounding the left uretera l orifice associated with the impaction of the calculus. I then attempted to advance a 0.035 inch angle-tipped hydrophilic guidewire up the left ureter with t he aid of a 5-South African open-ended ureteral catheter; however, due to the severe degree of the impaction , I was unable to advance either the catheter, nor the guidewire proximal to the calculus. I therefo re decided to proceed with ureteroscopy. Semi-rigid ureteroscopy was performed after removing the cystoscope. The calculus was identified jus t proximal to the ureteral orifice, and I used a 365 micron holmium laser fiber to fragment the calcu neema into minute pieces. I was ultimately able to identify the true lumen, extending proximal to the calculus. I advanced a 0.035 inch guidewire up the left ureter at this point, and advanced it proxim ally into the renal collecting system as noted fluoroscopically. I then continued to perform laser l ithotripsy of the calculus. A couple of small fragments were remaining, and these were removed unrem arkably with a stone basket and sent to Pathology for chemical analysis. There was significant edema and inflammation of the distal left ureter where the calculus was impacted. The remainder of the ur eter was dilated, but otherwise unremarkable. I then removed the ureteroscope, then backloaded the c ystoscope over the guidewire. A 5-South African ,open-ended ureteral catheter was inserted over the guidewi re, and the guidewire was temporarily removed. Contrast was injected to opacify the left upper urina ry tract. This revealed a moderate dilatation of the left kidney and collecting system, but otherwis e, no other intraluminal filling defects were identified. The guidewire was reinserted and the urete ral catheter was removed. A 4.7-South African by 24 cm hydrophilic ureteral stent was advanced over the pili dewire until it was properly positioned and seen fluoroscopically in the kidney and cystoscopically i n the bladder. The bladder was then drained of all return which was relatively clear. The instrumen ts were removed and 20 cc of 2% lidocaine injected transurethrally for postoperative analgesic purpos es. He was then awakened, transferred to his bed, and then taken to the recovery room. He tolerated the procedure well overall. COMPLICATIONS: None. DISPOSITION: He was transferred to the recovery room in stable condition. He will be taken back to his room after leaving recovery and can be discharged once deemed appropriate by the hospitalist serv ice. Please discharge the patient on Uribel 1 capsule four times daily for the next 2 weeks and narc otic of choice. He will need to follow up with a urologist back in [place] in approximately 2 we eks for removal of his ureteral stent. This has been emphasized to the patient and will be re-emphas ized to the patient's this afternoon. /[id number]/MODL
[2017-07-24] MEDS: buPROPion SR 150 MG TAB PO SCH (08:00)
[2017-07-24] MEDS: SENNOSIDES/DOCUSATE SODIUM TAB PO SCH (08:01)
[2017-07-24] MEDS: PRESERVISION AREDS2 FORMULA EYE VIT 1 EACH PO SCH (08:01)
[2017-07-24] MEDS: PHENAZOPYRIDINE HCL 200 MG TAB PO SCH (08:02)
[2017-07-24 08:17] VITALS: BP 182/96; PULSE 63; TEMP 94.3; O2SAT 98
[2017-07-24] MEDS: Dextromethorphan Hbr/Quinidine [Nuedexta 20-10 Mg Capsule] PO SCH (08:22)
[2017-07-24] MEDS ORDERED: HYDROCODONE/APAP 5/325 TAB PO PRN (08:25)
[2017-07-24] MEDS: hydrALAZINE 20 MG/ML VIAL IVP PRN (09:11)
--- NOTE | 2017-07-24 10:51 | ASMTCMCOM ---
CM Note CM Note Notes: Pt. d/cing independently today per RN. Date Signed: 07/24/2017 10:51 AM Electronically Signed By:Gypsy Crabtree LCSW
--- NOTE | 2017-07-24 14:08 | GDS ---
[f rep st] DISCHARGE SUMMARY KNOWN ACUTE DIAGNOSES: 1. Acute left renal calculus. 2. Obstructive uropathy. 3. Acute kidney injury. 4. Constipation. 5. Hypertension. CONSULTATIONS: Urology with Dr. Debi Cote. PROCEDURES: Cysto-uroscopy with left retrograde pyelography, a left ureteroscopy with laser calculus lithotripsy and basket extraction, and a left ureteral stent placement 4.7 Somali by 24 cm. HOSPITAL COURSE: This is a 66-year-old male presented with left-sided low CVA pain. He was found by CT scan of the abdomen to demonstrate a 9 mm left ureterovesical junction stone with moderate obstruc tive uropathy. The stone was ultimately broken with laser lithotripsy and removed with basket extract ion, and a 4.7 x 24 cm stent was placed by Dr. Debi Cote. Laboratories initially showed some prere nal azotemia with a creatinine of 1.4 which was declining to 1.3 at the time of discharge with a BUN of 21. Urinalysis showed no infection. The composition of the stone is pending at this dictation. The patient had some dryp-sb-qgezenqg pain post extraction which was treated with p.o. narcotic medic ation successfully. Blood pressure was mildly elevated, treated with hydralazine, and he will be disc harged on his usual hypertensive medications. DISCHARGE MEDICATIONS: Valsartan/hydrochlorothiazide 160-12.5 mg tablet, 1 tablet each day; Flomax 0 .4 mg daily; herbal supplementation; Nuedexta 20-10 mg capsule, one daily; and Towaco 5/325 mg tablet #20, one to 2 p.o. q.6h p.r.n. pain. PLAN: Patient is discharged to his own care. His PCP is in [place]. This dictation will be given to the patient. He has been told to have a referral within 2-3 weeks with Urology there, in [facility], for removal of the stent. TIME: This discharge required 50 minutes, greater than 50% to children counselor, coordinate his care. /[id number]/MODL
--- NOTE | 2017-07-25 09:22 | ASDISCHSUM ---
Discharge Information Plan Status:Home with No Needs Medically Cleared to Leave: Discharge Date:07/24/2017 11:15 AM CM D/C Disposition:Home, Routine, Self-Care ADT D/C Disposition:Home, Routine, Self-Care Projected Discharge Date:07/24/2017 12:00 AM Transportation at D/C: Discharge Delay Reason: Follow-Up Date:07/24/2017 12:00 AM Discharge Slot: Final Diagnosis: Placement Information Patient Contact Information Contact Name:ENMANUEL Relationship: Address:[address] Work Phone: City:[place] Phone: [facility]/Zip Code:[place] [address] Email: Financial Information Financial Class:Medicare Advantage Plans Primary Plan Desc:LINDA [employer] LEANNA Primary Plan Number:[id number] Secondary Plan Desc: Secondary Plan Number: Assessment Information [facility] CM Progress Note CM Note CM Note Notes: Patient taken to surgery today for kidney stone. Anticipate discharge Independent tomorrow, . 07/24/2017. Case management will follow. Date Signed: 07/23/2017 05:43 PM Electronically Signed By:EDUARDO Da Silva [facility] CM Progress Note CM Note CM Note Notes: Pt. d/joanie independently today per RN. Date Signed: 07/24/2017 10:51 AM Electronically Signed By:Gypsy Crabtree LCSW Intervention Information Intervention Type:*BELLA-Signed Date of Service:07/23/2017 09:31 AM Patient Type:Observation Staff Member:Tania Gramajo Hours: Discipline: Severity: Comment:
== END 2017-07-24 11:15 | disposition home or self-care (01) ==
LOC: F1N 15:13
PROVIDERS: ADMIT Internal Medicine; ATTEND Internal Medicine Pulmonary Disease
PROC: BT171ZZ Fluoroscopy of Left Ureter using Low Osmolar Contrast (ICD-10-PCS; principal; 2017-07-22)
PROC: 0T9780Z Drainage of Left Ureter with Drainage Device, Via Natural or Artificial Opening Endoscopic (ICD-10-PCS; principal; 2017-07-22)
PROC: 0TC78ZZ Extirpation of Matter from Left Ureter, Via Natural or Artificial Opening Endoscopic (ICD-10-PCS; principal; 2017-07-22)
DX: N13.2 Hydronephrosis with renal and ureteral calculous obstruction (principal); N17.9 Acute kidney failure, unspecified; I10 Essential (primary) hypertension; N40.0 Benign prostatic hyperplasia without lower urinary tract symptoms
CPT/HCPCS: 52356; 74177; 76001; 88300; 96361; 96374; 96375; 99285; C1769; C2625; G0378; J0360; J1100; J1170; J1885; J1956; J2405; J2704; J2765; J3010; Q9967; 82365-90